=== PATIENT | female | born 1935 | race Asian ===

== ENCOUNTER 2021-03-19 15:03 | Outpatient (CLI) | payer OTHER | END 2021-03-19 21:06 | disposition home or self-care (01) | LOC: LABW 15:03 | PROVIDERS: ATTEND Nurse Practitioner Family | DX: D64.89 Other specified anemias (principal) | CPT/HCPCS: 82272 ==

== ENCOUNTER 2021-04-02 09:36 | Inpatient (IN) | payer OTHER ==
[~2021-04-02] VITALS: Ht 165.1 cm; Wt 106.4 kg
[2021-04-02 09:40] VITALS: BP 186/76; TEMP 97.2
[2021-04-02 10:20] VITALS: BP 151/82
[2021-04-02 10:28] LABS: PLATELET COUNT 240 K/uL (152-353)
[2021-04-02 11:03] LABS: POTASSIUM 4.8 mmol/L (3.6-5.2)
[2021-04-02 16:14] VITALS: BP 139/50; TEMP 98; Ht 165.1 cm; Wt 106.4 kg
[2021-04-02] MEDS ORDERED: LEVE500T5 PO (17:05)
[2021-04-02] MEDS ORDERED: SIMV20TA2 PO (17:05)
[2021-04-02] MEDS ORDERED: AMLODIPINE BESYLATE PO (17:06)
[2021-04-02] MEDS ORDERED: ELIQUIS5 MG PO ×2 (17:06→17:07)
[2021-04-02] MEDS ORDERED: ASA LOW DOSE81 MG PO (17:07)
[2021-04-02] MEDS ORDERED: CLOP75TA2 PO (17:08)
[2021-04-02] MEDS ORDERED: COZAAR100 MG PO (17:08)
[2021-04-02] MEDS ORDERED: LOPRESSOR100 MG PO (17:09)
[2021-04-02] MEDS ORDERED: PANTOPRAZOLE 40MG TA PO (17:09)
[2021-04-02] MEDS ORDERED: FURO40TA93 PO (17:12)
[2021-04-02] MEDS ORDERED: FERROUS SULF324 MG PO (17:12)
[2021-04-02] MEDS ORDERED: INSU100I2 SC (17:15)
[2021-04-02 19:38] VITALS: BP 104/63; TEMP 97.7
[2021-04-03] VITALS (7 sets, daily range): BP systolic 112–193; BP diastolic 40–75; TEMP 97.3–98.3
[2021-04-03 05:43] LABS: PLATELET COUNT 186 K/uL (152-353)
[2021-04-03 05:55] LABS: POTASSIUM 4.3 mmol/L (3.6-5.2)
[2021-04-03] MEDS ORDERED: HUMALOG KW100 UNIT/M SC (10:20)
[2021-04-04 00:17] VITALS: BP 139/59; TEMP 98.1
[2021-04-04 04:18] VITALS: BP 109/45; TEMP 98.1
[2021-04-04 05:38] LABS: PLATELET COUNT 168 K/uL (152-353)
[2021-04-04 05:49] LABS: POTASSIUM 4.6 mmol/L (3.6-5.2)
[2021-04-04 08:00] VITALS: BP 128/38; BP 128/58; TEMP 98.7
[2021-04-04 12:00] VITALS: BP 144/61; TEMP 97
[2021-04-04 16:00] VITALS: BP 114/31; TEMP 97.4
[2021-04-04 20:00] VITALS: BP 122/53; TEMP 98.5
[2021-04-05] VITALS: BP 148/55; TEMP 97.8
[2021-04-05 04:00] VITALS: BP 139/44; TEMP 97.5
[2021-04-05 04:59] LABS: PLATELET COUNT 162 K/uL (152-353)
[2021-04-05 05:11] LABS: POTASSIUM 4.1 mmol/L (3.6-5.2)
[2021-04-05 08:00] VITALS: BP 120/44; TEMP 97.9
[2021-04-05 12:00] VITALS: BP 142/46; TEMP 97.9
[2021-04-05 16:00] VITALS: BP 121/49; TEMP 97.8
[2021-04-05 20:00] VITALS: BP 122/37; BP 138/51; TEMP 98.3
[2021-04-06 00:12] VITALS: BP 134/56; TEMP 98.1
[2021-04-06 04:17] VITALS: BP 131/59; TEMP 98.4
[2021-04-06 07:45] LABS: PLATELET COUNT 178 K/uL (152-353)
[2021-04-06 07:47] LABS: POTASSIUM 5.2 mmol/L (3.6-5.2)
[2021-04-06 08:00] VITALS: BP 132/41; TEMP 98.5
[2021-04-06] MEDS ORDERED: POTA20TA4 PO (09:58)
[2021-04-06] MEDS ORDERED: SOD CHLORIDE1 GM PO (09:59)
[2021-04-06] MEDS ORDERED: FURO40TA93 PO (10:00)
== END 2021-04-06 19:42 | disposition home or self-care (01) | DRG 292 ==
LOC: ED 09:36 → MED/SURG 13:50
PROVIDERS: Emergency Medicine Emergency Medical Services; Internal Medicine Endocrinology, Diabetes & Metabolism; ADMIT Internal Medicine; ATTEND Internal Medicine
DX: I50.30 Unspecified diastolic (congestive) heart failure (principal); I25.810 Atherosclerosis of coronary artery bypass graft(s) without angina pectoris; E87.1 Hypo-osmolality and hyponatremia; G40.802 Other epilepsy, not intractable, without status epilepticus; I48.92 Unspecified atrial flutter; R60.0 Localized edema; E11.9 Type 2 diabetes mellitus without complications; Z79.4 Long term (current) use of insulin; K21.9 Gastro-esophageal reflux disease without esophagitis; I10 Essential (primary) hypertension; D50.8 Other iron deficiency anemias
CPT/HCPCS: 36415; 80048; 80053; 82948; 83735; 83880; 84484; 85027; 85610; 87635; 93005; 96372; 96374; 96375; 99284; J0360; J1815; J1940; U0003

== ENCOUNTER 2021-04-13 12:44 | Outpatient (CLI) | payer OTHER ==
[~2021-04-13 12:44] MED LIST: AMLODIPINE BESYLATE PO; ASA LOW DOSE81 MG PO; CLOP75TA2 PO; COZAAR100 MG PO; ELIQUIS5 MG PO; FERROUS SULF324 MG PO; FURO40TA93 PO; HUMALOG KW100 UNIT/M SC; INSU100I2 SC; LEVE500T5 PO; LOPRESSOR100 MG PO; PANTOPRAZOLE 40MG TA PO; POTA20TA4 PO; SIMV20TA2 PO; SOD CHLORIDE1 GM PO
== END 2021-04-13 19:30 | disposition home or self-care (01) ==
LOC: LAB 12:44
PROVIDERS: ATTEND Nurse Practitioner Family
DX: E87.1 Hypo-osmolality and hyponatremia (principal)
CPT/HCPCS: 83935; 84300

== ENCOUNTER 2021-05-02 10:13 | Outpatient (CLI) | payer OTHER | END 2021-05-02 18:54 | disposition home or self-care (01) | LOC: RAD 10:13 | PROVIDERS: ATTEND Nurse Practitioner Family | DX: M25.551 Pain in right hip (principal); M25.552 Pain in left hip ==

== ENCOUNTER 2021-05-02 10:34 | Inpatient (IN) | payer OTHER ==
[2021-05-02] VITALS (15 sets, daily range): BP systolic 123–166; BP diastolic 51–85; TEMP 97.6–98.7; Ht 165.1 cm; Wt 108.9 kg
[~2021-05-02] VITALS: Ht 165.1 cm; Wt 108.9 kg
[2021-05-02 11:35] LABS: PLATELET COUNT 165 K/uL (152-353)
[2021-05-02 11:41] LABS: POTASSIUM 4.7 mmol/L (3.6-5.2)
[2021-05-03 04:00] VITALS: BP 109/66; TEMP 98.1
[2021-05-03 08:00] VITALS: BP 117/68; TEMP 97.8
[2021-05-03 09:26] LABS: PLATELET COUNT 147 K/uL (152-353)
[2021-05-03 09:32] LABS: POTASSIUM 5.1 mmol/L (3.6-5.2)
[2021-05-03 12:00] VITALS: BP 142/65; TEMP 98
[2021-05-03 16:00] VITALS: BP 131/73; TEMP 98.3
[2021-05-03 20:00] VITALS: BP 110/58; TEMP 97.7
--- NOTE | 2021-05-03 21:28 | NUR ---
PT AWAKE AND ORIENTED WITH NO ACUTED DISTRESS NOTED, DENIES ANY NEEDS AT THIS TIME AND IS TALKATIVE WITH SYRUPER, ASSISTED PT TO RAISE HOB AND TAKE NIGHTLY MEDICATIONS. PT TOOK MEDICATIONS WHOLE WITH WATER WITH NO PROBLEMS OR S/S OF SWALLOWING PROBLEMS NOTED. ELEVATED BOTH FEET ON PILLOW DUE TO PITTING EDEMA. 22G IV LOCK INTACT TO R AC, GAVE IV LASIX PER ORDER FLUSHED BEFORE AND AFTER WITH 5ML NS. HOB REMAINS ELEVATED IN POSITION OF COMFORT, ENCOURAGED TO CALL NEEDED, RAILS UP, BED IN LOW POSTION, CALL LIGHT IN REACH.
[2021-05-04] VITALS: BP 137/77; TEMP 97.6
--- NOTE | 2021-05-04 00:30 | NUR ---
RESTING ON R SIDE IN BED WITH EYES CLOSED, NO S/S OF PAIN OR DISTRESS NOTED, IV LOCK INTACT TO R AC, ACUNA PATENT DRAINING TO BEDSIDE, WILL MONITOR CLOSELY, RAILS UP, BED IN LOW POSITION, CALL LIGHT IN REACH.
--- NOTE | 2021-05-04 02:00 | NUR ---
RESTING IN BED ON SIDE WITH WITH EYES CLOSED, NO S/S OF PAIN OR DISTRESS NOTED, IV LOCK INTACT, ACUNA PATENT, WILL MONITOR CLOSELY, RAILS UP, BED IN LOW POSITION, CALL LIGHT IN REACH, BED IN LOW POSITION.
[2021-05-04 04:00] VITALS: BP 115/73; TEMP 97.8
[2021-05-04 05:19] LABS: POTASSIUM 5.3 mmol/L (3.6-5.2)
[2021-05-04 05:27] LABS: PLATELET COUNT 153 K/uL (152-353)
[2021-05-04 08:00] VITALS: BP 127/63; TEMP 97.6
--- NOTE | 2021-05-04 10:22 | NUR ---
after scanning armband and medications, patient refused to take pills and IV lasix until she talks with the doctor. states that nothing is working and her legs are still swollen. comic writer attempted to educate patient on need of medications and purpose and the time it takes but patient would not listen. patient wants to speak to the doctor before she takes any more medication.
[2021-05-04 12:00] VITALS: BP 143/62; TEMP 97.7
[2021-05-04 16:00] VITALS: BP 128/72; TEMP 97.5
[2021-05-04 20:00] VITALS: BP 119/63; TEMP 97.9
[2021-05-05] VITALS (8 sets, daily range): BP systolic 102–139; BP diastolic 45–76; TEMP 97.4–98
[2021-05-05 08:51] LABS: PLATELET COUNT 139 K/uL (152-353)
[2021-05-05 10:24] LABS: POTASSIUM 4.3 mmol/L (3.6-5.2)
--- NOTE | 2021-05-05 17:11 | NUR ---
PATIENT HAS HAD NO COMPLAINTS OF DISCOMFORT THIS SHIFT. SHE HAS HAD SEVERAL FAMILY MEMBERS COME AND VISIT INCLUDING HER GRANDDAUGHTER THAT GAVE HER A BATH. CATHETER CONTINUES TO PUT OUT BLOODY URINE. PATIENT HAS SAT UP IN THE CHAIR FOR SEVERAL HOURS TODAY. PATIENT IS NOW RESTING IN BED AFTER EATING SUPPER. WILL CONTINUE TO MONITOR.
--- NOTE | 2021-05-05 17:41 | NUR ---
PATIENT STATED TO FIELD COLLECTOR WHEN I TOOK THE SUPPER TRAY INTO HER ROOM THAT HER FOOD IS ALWAYS COLD WHEN IT IS BROUGHT TO HER AND NOBODY IS FEEDING HER. SHE STATES THAT SHE CANNOT FEED HERSELF SO AFTER PASSING EVERYONE'S SUPPER TRAY, FIELD COLLECTOR WENT BACK INTO ROOM AND FED PATIENT. AT THAT TIME THE FOOD WAS COLD SO FIELD COLLECTOR HAD TO WARM FOOD UP IN MICROWAVE. PATIENT THEN DID EAT ABOUT 75% OF HER MEAL BUT HAD TO BE FED TO HER BY FIELD COLLECTOR. SHE WAS IN A MUCH BETTER MOOD AFTERWARDS. FIELD COLLECTOR WAS INFORMED THAT PATIENT WAS HERE NOT LONG AGO AND WAS FEEDING HERSELF AT THAT TIME.
[2021-05-06] VITALS: BP 124/54; TEMP 98.1
--- NOTE | 2021-05-06 03:15 | NUR ---
05/05/21 2015: PT LYING IN BED WITH EYES CLOSED. AWAKENED EASILY TO VOICE. PT VOICED NO COMPLAINTS AT THIS TIME.
[2021-05-06 04:41] VITALS: BP 128/50; TEMP 98.3
[2021-05-06 08:00] VITALS: BP 139/72; TEMP 97.8
[2021-05-06 08:42] LABS: PLATELET COUNT 138 K/uL (152-353)
[2021-05-06 08:43] LABS: POTASSIUM 3.9 mmol/L (3.6-5.2)
--- NOTE | 2021-05-06 11:32 | NUR ---
05/06/21 1135 SITTING HF COTTONBALL APPLIED TO CALL LIGHT INSTRUCTED ON USE.FAMILY BROUGHT IN FOOD FOR PT EARILER PT STATES SHE DOESNOT EAT MEAT.CC
[2021-05-06 12:21] VITALS: BP 115/52; TEMP 98
--- NOTE | 2021-05-06 13:57 | NUR ---
05/06/21 1350 SITTING HF IN CHAIR FRESH ICE WATER PROVIDED AT BEDSIDE.CALL LIGHT WITHIN REACH.NO C/O VOICED.
--- NOTE | 2021-05-06 14:55 | NUR ---
05/06/21 1450 ASSISTED PT TO BED PT C/O OF NECK AND SHOULDER PAIN REQUESTING PAIN MEDICATION.CALL LIGHT WITHIN REACH.CC
[2021-05-06 16:00] VITALS: BP 126/66; TEMP 97.7
--- NOTE | 2021-05-06 16:54 | NUR ---
05/06/21 7478 ASSISTED PT TO EAT DINNER TOLERATED WELL.CALL LIGHT WITHIN REACH.CC
[2021-05-06 20:00] VITALS: BP 130/71; TEMP 97.5
--- NOTE | 2021-05-06 23:25 | NUR ---
05/06/21 2100: PT HAS EYES CLOSED BUT IS AWAKE. NO CCOMPLAINTS OF PAIN AT THIS TIME. PT SITTING UP IN HIGH FOWLERS. FEET ELEVATED ON PILLOWS. PT HAS EDEMA ALL OVER BODY. ACUNA CATH IN PLACE.
[2021-05-07 00:06] VITALS: BP 93/63; TEMP 97.6
[2021-05-07 04:10] VITALS: BP 108/63; TEMP 97.8
[2021-05-07 05:53] LABS: PLATELET COUNT 120 K/uL (152-353)
[2021-05-07 06:16] LABS: POTASSIUM 3.8 mmol/L (3.6-5.2)
[2021-05-07 08:00] VITALS: BP 137/58; TEMP 97.5
--- NOTE | 2021-05-07 10:00 | NUR ---
WENT INTO PT'S ROOM AND PT'S FAMILY WAS GIVING HER A BATH AT THIS TIME. PT SITTING ON BSC AT THIS TIME. I OFFERED TO CHANGE THE PT'S SHEETS AND FAMILY MEMBER STATED THEY WAS OK AT THIS TIME.
--- NOTE | 2021-05-07 11:59 | NUR ---
PT'S FAMILY CAME TO NURSES STATION AND REQUESTED TO SPEAK WITH MD. DR BO WENT TO ROOM TO SPEAK WITH HER AT THIS TIME.
[2021-05-07 12:00] VITALS: BP 135/63; TEMP 97.4
[2021-05-07 16:00] VITALS: BP 128/78; TEMP 98
[2021-05-07 20:00] VITALS: BP 140/73; TEMP 97.9
--- NOTE | 2021-05-07 21:50 | NUR ---
PT AWAKE WITH NO DISTRESS NOTED, DENIES ANY PROBLEMS AT THIS TIME, ALERT AND ORIENTED. GAVE NIGHTLY MEDICATIONS, WILL MONITOR CLOSELY, RAILS UP, BED IN LOW POSITION, CALL LIGHT IN REACH. IV LOCK INTACT 22G TO R AC, ACUNA PATENT DRAINING TO BEDSIDE.
--- NOTE | 2021-05-07 23:26 | NUR ---
RESTING WITH EYES CLOSED, NO S/S OF PAIN OR DISTRESS NOTED, WILL MONITOR CLOSELY, RAILS UP, BED IN LOW POSITION, CALL LIGHT IN REACH.
--- NOTE | 2021-05-07 23:45 | NUR ---
RESTING IN BED WITH EYES CLOSED NO S/S OF PAIN OR DISTRESS NOTED, RESP RATE NONLABORED, ACUNA PATENT DRAINING TO BEDSIDE, IV LOCK INTACT TO R AC WITH NO PROBLEMS NOTED TO SITE, WILL MONITOR, RAILS UP, BED IN LOW POSITION, CALL LIGHT IN REACH.
[2021-05-08] VITALS: BP 128/60; TEMP 97.8
--- NOTE | 2021-05-08 01:42 | NUR ---
PT CALL LIGHT ANSWERED, PT FOUND AWAKE LAYING IN BED WITH HOB ELEVATED, REPOSITIONED IN BED PER REQUEST. PT C/O CONSTANT PAIN TO R SHOULDER AND NECK THAT IS A 10 ON SCALE PT MOANING AT TIMES. GAVE NORCO 5/325MG PO PRN PER REQUEST FOR PAIN. IV LOCK INTACT, ACUNA PATENT. WILL MONITOR CLOSELY, RAILS UP, BED IN LOW POSITION, CALL LIGHT IN REACH, ENCOURAGED TO CALL NEEDED.
--- NOTE | 2021-05-08 02:15 | NUR ---
RESTING WITH EYES CLOSED, NO S/S OF PAIN OR DISTRESS NOTED, NO REACTIONS NOTED TO PAIN MEDICATION, WILL MONITOR CLOSELY, RAILS UP, BED IN LOW POSITION, CALL LIGHT IN REACH.
[2021-05-08 04:00] VITALS: BP 135/90; TEMP 97.7
--- NOTE | 2021-05-08 05:05 | NUR ---
PT AWAKE WITH NO ACUTE DISTRESS NOTED. REPOSITION IN BED PER REQUEST, WILL CONTINUE TO MONITOR CLOSELY, RAILS UP, BED IN LOW POSITION, CALL LIGHT IN REACH, ENCOURAGED TO CALL NEEDED.
[2021-05-08 05:20] LABS: PLATELET COUNT 113 K/uL (152-353)
[2021-05-08 05:33] LABS: POTASSIUM 3.7 mmol/L (3.6-5.2)
[2021-05-08 08:00] VITALS: BP 97/67; TEMP 97.6
[2021-05-08 12:00] VITALS: BP 119/51; TEMP 98.1
[2021-05-08 16:00] VITALS: BP 109/47; TEMP 97.8
[2021-05-08 20:00] VITALS: BP 113/56; TEMP 97.6
[2021-05-09] VITALS: BP 126/59; TEMP 97.8
[2021-05-09 04:00] VITALS: BP 113/58; TEMP 97.7
[2021-05-09 05:54] LABS: PLATELET COUNT 110 K/uL (152-353)
[2021-05-09 06:18] LABS: POTASSIUM 3.9 mmol/L (3.6-5.2)
[2021-05-09 08:00] VITALS: BP 132/59; TEMP 97.9
--- NOTE | 2021-05-09 11:47 | NUR ---
PT ALERT AND ORIENTED AND AGITATED IN AM. PT C/O NOT SLEEPING WELL R/T DX. ASSISTED PT TO PULL UP IN BED. IV SITE TO RAC LEAKING AND D/C'D PER HCP(IFEANYI) AND LASIX 80MG IV D/C'D AND CHANGED TO LASIX 80MG PO BID. GENERALIZED EDEMA NOTED, PITTING EDEMA,4+. DENIES ANY PAIN. ELEVATED LOWER EXTREMITIES ON PILLOW. ASSISTED PT WITH BREAKFAST MEAL, BY ORIENTATING PT TO WHERE FOOD IS LOCATED ON TRAY, PT WILL FEED HERSELF. CONTINUE TO MONITOR.
[2021-05-09 12:00] VITALS: BP 100/57; TEMP 97.7
--- NOTE | 2021-05-09 14:17 | NUR ---
PER HCP (IFEANYI) ACUNA D/C'D TODAY, URINE BLOODY. BLADDER TRAINING COMPLETED AND ACUNA REMOVED AT 1400 AND PT TOLERATED IT WELL. BED BATH GIVEN TO PT TODAY. DENIES ANY PAIN/DISCOMFORT. POOR APPETITE, PT STATED, "I'M JUST NOT THAT HUNGRY." CONTINUE TO MONITOR.
[2021-05-09 16:00] VITALS: BP 139/61; TEMP 98.2
--- NOTE | 2021-05-09 17:53 | NUR ---
PT IN HIGH FOWLERS IN BED RESTING QUIETLY WITH EYES CLOSED. ASSISTED PT TO REPOSITION IN BED.PT ATE FOOD BROUGHT IN FROM HOME FOR LUNCH. ONLY ATE 10% OF MEAL. DENIES ANY PAIN OR DISCOMFORT THIS SHIFT. CLEAR AND LOGICAL SPEECH WITH AN ACCENT. CONTINUE TO MONITOR.
[2021-05-09 20:00] VITALS: BP 118/61; TEMP 98.1
--- NOTE | 2021-05-09 23:05 | NUR ---
2100;PT AWAKENED FOR PM MEDS. PT DID NOT WANT TO TAKE STATED "LET ME THINK ABOUT IT FOR AWHILE." PT THEN PROCEDED TO SAY THAT SHE WOULD TAKE SOME. ALL MEDS GIVEN EXCEPT KEPPRA AND SODIUM CLORIDE. PT THEN SAID " BREAK THE OTHER TWO IN HALF AND GIVE ME A HALF AT A TIME." GAVE PT PILLS 1/2 AT A TIME. PT TOOK ALL PM MEDS.
[2021-05-10] VITALS: BP 130/65; TEMP 98
[2021-05-10 04:27] VITALS: BP 152/50; TEMP 97.8
[2021-05-10 08:00] VITALS: BP 137/61; TEMP 98.5
[2021-05-10 09:07] LABS: PLATELET COUNT 131 K/uL (152-353)
--- NOTE | 2021-05-10 10:00 | NUR ---
GRANDDAUGHTER AT BEDSIDE, SHE STATES THAT PT TAKES ASA, PLAVIX AND ELIQUIS.
--- NOTE | 2021-05-10 10:37 | NUR ---
05/10/21 1015 REPEATED RAPID COVID SWAB PER ORDER.
[2021-05-10 12:00] VITALS: BP 136/61; TEMP 97.9
--- NOTE | 2021-05-10 15:00 | NUR ---
PT REFUSED TO GET OOB STATING THAT THERAPY TOLD HERE SHE WAS TOO WEAK. PT ASKED FOR BED BATH.
[2021-05-10] MEDS ORDERED: FURO40TA93 PO (15:30)
[2021-05-10] MEDS ORDERED: ACET-689 PO (15:36)
[2021-05-10 16:00] VITALS: BP 155/59; TEMP 97.6
[2021-05-10 20:24] VITALS: BP 131/62; TEMP 97.8
[2021-05-11 00:17] VITALS: BP 131/51; TEMP 97.5
[2021-05-11 04:00] VITALS: BP 142/63; TEMP 97.6
[2021-05-11 08:00] VITALS: BP 117/63; TEMP 97.6
--- NOTE | 2021-05-11 10:50 | NUR ---
PT ASSISTED TO CHAIR AT BEDSIDE BY DAWNA PURDY
[2021-05-11 11:55] VITALS: BP 111/53; TEMP 97.3
--- NOTE | 2021-05-11 12:48 | NUR ---
PT BACK IN BED IN HF. PT EATING LUNCH WITH ASSISSTANCE FROM JULY, SUPERVISOR COLOR PASTE MIXING.
--- NOTE | 2021-05-11 13:24 | NUR ---
05/11/21-PRACTICAL MATTER STATEMENT MS AYERS IS A 85 YR OLD FEMALE WITH PAST MEDICAL HISTORY OF CAD, CHF, DIABETES, GERD, HTN, HYPONATREMIA, IRON DEFICIENCY ANEMIA, & SEIZURE DISORDER. SHE WAS IN THE HOSPITAL IN [place] FOR SIMILAR SYMPTOMS. HER CHEST XRAY DEMONSTRATES CARDIOMEGALY WITH VENOUS CONGESTION. PT HAS BEEN TREATED WITH APPROPRIATE MEDICATIONS BUT SHE STILL REQUIRES 24HR SHELTER CARE ON AN INPT BASIS, ALONG WITH PHYSICAL THERAPY AND OCCUPATIONAL THERAPY 5 TIMES PER WEEK, WHICH IS A PRACTICAL MATTER. SHE IS UNABLE TO WALK OR TRANSFER WITHOUT HELP. SHE REQUIRES ASSISTANCE WITH TOILETING, DRESSING, BATHING, & EATING. SHE REQUIRES ASSISTANCE WITH ALL ADL'S. SHE LIVES WITH HER GRANDDAUGHTER WHO TAKES CARE OF HER WHEN SHE IS NOT WORKING. HER GRANDDAUGHTER WORKS AND CANT PROVIDE HER 24HR CARE. MS. AYERS IS UNABLE TO PERFORM HER DAILY ADL'S AND NEEDS 24HR CARE AND SUPERVISION. THE UR/CASE MANAGEMENT STAFF WILL CONTINUE TO OBSERVE & ASSIST MS. AYERS WITH NA MEDICALLY RELATED NEEDS AND DISCHARGE PLANNING. PALOMO FULTON LPN UR CM...............05/11/2021 CARE FOR HERSELF
[2021-05-11] MEDS ORDERED: BLOOMIS59 PO ×4 (14:35→14:38)
== END 2021-05-11 13:05 | disposition swing bed (61) | DRG 291 ==
LOC: ED 10:34 → MED/SURG 15:05
PROVIDERS: Emergency Medicine; ADMIT Internal Medicine Endocrinology, Diabetes & Metabolism; ATTEND Internal Medicine Endocrinology, Diabetes & Metabolism
DX: I13.0 Hypertensive heart and chronic kidney disease with heart failure and stage 1 through stage 4 chronic kidney disease, or unspecified chronic kidney disease (principal); I50.43 Acute on chronic combined systolic (congestive) and diastolic (congestive) heart failure; N17.8 Other acute kidney failure; G40.802 Other epilepsy, not intractable, without status epilepticus; E11.22 Type 2 diabetes mellitus with diabetic chronic kidney disease; N18.31 Chronic kidney disease, stage 3a; I42.8 Other cardiomyopathies; I25.10 Atherosclerotic heart disease of native coronary artery without angina pectoris; K21.9 Gastro-esophageal reflux disease without esophagitis; D50.8 Other iron deficiency anemias; R53.1 Weakness; R62.7 Adult failure to thrive
CPT/HCPCS: 36415; 36600; 51702; 80048; 80053; 80074; 81000; 82570; 82652; 82805; 83516; 83880; 83970; 84100; 84155; 84165; 84166; 84484; 85027; 86038; 86060; 86160; 86255; 86592; 87535; 87635; 93005; 96374; 99284; G0432; J1815; J1940; P9047; U0003

== ENCOUNTER 2021-05-11 13:05 | Inpatient (IN) | payer OTHER ==
[~2021-05-11] VITALS: Ht 157.5 cm; Wt 93.9 kg
[~2021-05-11 13:05] MED LIST changes: +ACET-689 PO
[2021-05-11 13:23] VITALS: BP 111/53; TEMP 97.3; BMI 39.9
[2021-05-11] MEDS ORDERED: BLOOMIS59 PO ×4 (14:35→14:38)
[2021-05-11 20:00] VITALS: BP 110/58; TEMP 97.9
[2021-05-12 08:00] VITALS: BP 108/58; TEMP 97.3
[2021-05-12 20:00] VITALS: BP 103/70; TEMP 97.7
[2021-05-13 08:00] VITALS: BP 131/63; TEMP 97.9
[2021-05-13 20:00] VITALS: BP 130/51; TEMP 97.6
[2021-05-14 08:00] VITALS: BP 126/66; TEMP 98.1
[2021-05-14 20:00] VITALS: BP 104/65; TEMP 97.6
[2021-05-15 08:00] VITALS: BP 146/58; TEMP 98.6
[2021-05-15 20:15] VITALS: BP 125/62; TEMP 98.3
[2021-05-16 08:00] VITALS: BP 109/51; TEMP 97.6
[2021-05-16 20:00] VITALS: BP 112/70; TEMP 97.8
[2021-05-17 08:00] VITALS: BP 109/60; TEMP 98.5
[2021-05-17 14:21] LABS: PLATELET COUNT 159 K/uL (152-353)
[2021-05-17 14:23] LABS: POTASSIUM 3.8 mmol/L (3.6-5.2)
[2021-05-17 20:00] VITALS: BP 119/61; TEMP 97.7
[2021-05-18 05:17] LABS: POTASSIUM 3.5 mmol/L (3.6-5.2)
[2021-05-18 08:00] VITALS: BP 123/47; TEMP 97.7
[2021-05-18 19:52] VITALS: BP 117/44; TEMP 97.6
[2021-05-19 08:00] VITALS: BP 100/61; TEMP 97.7
[2021-05-19 13:02] VITALS: BP 123/76; TEMP 97.9; Ht 157.5 cm; Wt 93.9 kg
[2021-05-19 20:02] VITALS: BP 102/49; TEMP 98.1
[2021-05-20 08:00] VITALS: BP 125/56; TEMP 98
[2021-05-20 12:57] LABS: POTASSIUM 2.9 mmol/L (3.6-5.2)
[2021-05-20 20:12] VITALS: BP 102/45; TEMP 97.7
[2021-05-21 05:39] LABS: POTASSIUM 2.2 mmol/L (3.6-5.2)
[2021-05-21 08:27] VITALS: BP 124/56; TEMP 97.7
[2021-05-21 20:00] VITALS: BP 110/68; TEMP 97.2
[2021-05-22 05:48] LABS: POTASSIUM 3.5 mmol/L (3.6-5.2)
[2021-05-22 08:03] VITALS: BP 125/57; TEMP 98.4
[2021-05-22 20:00] VITALS: BP 126/66; TEMP 97.4
[2021-05-23 06:03] LABS: POTASSIUM 2.2 mmol/L (3.6-5.2)
[2021-05-23 08:00] VITALS: BP 114/48; TEMP 97.7
[2021-05-23 20:27] VITALS: BP 109/55; TEMP 97.4
[2021-05-24 08:00] VITALS: BP 100/56; TEMP 97.6
[2021-05-24 20:00] VITALS: BP 107/50; TEMP 98.3
[2021-05-25 08:00] VITALS: BP 102/44; TEMP 98.2
[2021-05-25 20:00] VITALS: BP 107/58; TEMP 97.3
[2021-05-26 08:00] VITALS: BP 127/80; TEMP 98.3
[2021-05-26 20:00] VITALS: BP 114/56; TEMP 97.8
[2021-05-27 08:00] VITALS: BP 111/55; TEMP 97.6
[2021-05-27 20:00] VITALS: BP 118/54; TEMP 98.1
[2021-05-28 08:52] VITALS: BP 118/50; TEMP 98.2
[2021-05-28 18:52] LABS: PLATELET COUNT 129 K/uL (152-353)
[2021-05-28 19:05] LABS: POTASSIUM 2.5 mmol/L (3.6-5.2)
[2021-05-28 20:23] VITALS: BP 116/62; TEMP 98.4
[2021-05-29 08:00] VITALS: BP 101/55; TEMP 98.1
[2021-05-29 08:40] LABS: POTASSIUM 4.6 mmol/L (3.6-5.2)
[2021-05-29 08:41] LABS: PLATELET COUNT 106 K/uL (152-353)
[2021-05-29 20:00] VITALS: BP 96/48; TEMP 97.6
[2021-05-30 05:44] LABS: PLATELET COUNT 110 K/uL (152-353)
[2021-05-30 08:00] VITALS: BP 116/57; TEMP 97.4
[2021-05-30] MEDS ORDERED: BLOOMIS59 PO ×2 (14:03)
[2021-05-30] MEDS ORDERED: BLOOMIS59 SC (14:03)
[2021-05-30] MEDS ORDERED: BLOOMIS59 TOP (14:03)
[2021-05-30 20:00] VITALS: BP 91/44; TEMP 97.3
[2021-05-31 05:11] LABS: PLATELET COUNT 101 K/uL (152-353)
[2021-05-31 08:29] VITALS: BP 103/54; TEMP 97.8
== END 2021-05-31 12:20 | DRG 292 ==
LOC: MED/SURG 13:05
PROVIDERS: Internal Medicine Endocrinology, Diabetes & Metabolism; ADMIT Internal Medicine; ATTEND Internal Medicine
DX: I50.43 Acute on chronic combined systolic (congestive) and diastolic (congestive) heart failure (principal); I25.10 Atherosclerotic heart disease of native coronary artery without angina pectoris; I42.9 Cardiomyopathy, unspecified; E11.9 Type 2 diabetes mellitus without complications; R53.81 Other malaise; M62.81 Muscle weakness (generalized); Z74.1 Need for assistance with personal care; N18.30 Chronic kidney disease, stage 3 unspecified; I12.9 Hypertensive chronic kidney disease with stage 1 through stage 4 chronic kidney disease, or unspecified chronic kidney disease; D50.9 Iron deficiency anemia, unspecified; K21.9 Gastro-esophageal reflux disease without esophagitis; Z95.1 Presence of aortocoronary bypass graft; Z95.5 Presence of coronary angioplasty implant and graft
CPT/HCPCS: 36415; 36416; 80048; 80053; 81000; 82550; 83735; 84484; 85008; 85027; 87081; 93005; 94760; J1815; J1940; J2405; J7060